=== PATIENT | male | born 1975 | race Caucasian/White ===

== ENCOUNTER 2019-10-22 18:45 | Day surgery (SDC) | payer SELFPAY ==
[2019-10-22] MEDS ORDERED: HYDROmorphone 0.5 MG/0.5 ML Syringe IVPUSH ONE (19:11)
[2019-10-22] MEDS ORDERED: Metoclopramide 10 MG/2 ML SDV IVPUSH ONE (19:11)
[2019-10-22] MEDS ORDERED: Sodium Chloride 0.9% 1,000 ML IV SCH (19:15)
[2019-10-22] MEDS ORDERED: Glucagon,Human Recombinant 1 MG Vial IVPUSH ONE (19:36)
--- NOTE | 2019-10-22 19:58 | EDM.PDOC ---
ED HPI GENERAL MEDICAL PROBLEM - General Chief Complaint: General Stated Complaint: FOOD STUCK IN ESOPHAGUS Time Seen by Provider: 10/22/19 18:58 Source of Information: Reports: Patient History Limitations: Reports: No Limitations - History of Present Illness INITIAL COMMENTS - FREE TEXT/NARRATIVE: Patient is a 44-year-old male who presents to the emergency department with comp laints of a food bolus stuck in his esophagus. He states he was eating steak last evening and since that time he has not been able to keep any liquids down since that time. He has had occasional emesis of small amounts of fluids. He has had problems with food boluses stuck in his esophagus in the past, however states that usually within an hour it resolves spontaneously. He has never had to seek medical attention for a lodged food bolus in the past. He has never had an EGD done so he is unaware of any esophageal strictures. He feels that the food bolus is low was in esophagus. He will occasionally have spasms in the area of his xiphoid process which cause a sharp pain and then resolved. Denies any chronic health problems. Epigastric Pain Score (Numeric/FACES): 7 - Related Data Allergies Allergy/AdvReac Type Severity Reaction Status Date / Time No Known Allergies Allergy Verified 10/22/19 18:57 Home Meds: Home Meds Fexofenadine [Kelli] 1 tab PO DAILY 10/22/19 [History] Past Medical History Respiratory History: Reports: Asthma - Past Surgical History HEENT Surgical History: Reports: Tonsillectomy Social & Family History - Tobacco Use Smoking Status *Q: Never Smoker Second Hand Smoke Exposure: No - Caffeine Use Caffeine Use: Reports: Coffee - Recreational Drug Use Recreational Drug Use: No ED ROS GENERAL - Review of Systems Review Of Systems: Comprehensive ROS is negative, except as noted in HPI. ED EXAM, GENERAL - Physical Exam Exam: See Below Exam Limited By: No Limitations General Appearance: Alert, WD/WN, No Apparent Distress Respiratory/Chest: No Respiratory Distress, Lungs Clear, Normal Breath Sounds, No Accessory Muscle Use, Chest Non-Tender Cardiovascular: Normal Peripheral Pulses, Regular Rate, Rhythm, No Edema, No Gallop, No JVD, No Murmur, No Rub GI/Abdominal: Normal Bowel Sounds, Soft, Non-Tender, No Organomegaly, No Distention, No Abnormal Bruit, No Mass Neurological: Alert, Oriented, CN II-XII Intact, Normal Cognition, Normal Gait, Normal Reflexes, No Motor/Sensory Deficits Psychiatric: Normal Affect, Normal Mood Course - Vital Signs Last Recorded V/S: Last Vital Signs Temp 96.9 F 10/22/19 18:52 Pulse 84 10/22/19 18:52 Resp 22 H 10/22/19 18:52 BP 156/97 H 10/22/19 18:52 Pulse Ox 98 10/22/19 18:52 - Orders/Labs/Meds Orders: Active Orders 24 hr Category Date Time Status Patient Status [ADT] Routine ADT 10/22/19 20:25 Active CORONAVIRUS COVID-19 RAPID [MOLEC] Urgent Lab 10/22/19 20:17 Ordered Sodium Chloride 0.9% [Normal Saline] 1,000 ml Med 10/22/19 19:15 Active IV ASDIRECTED Schedule Procedure [COMM] Stat Oth 10/22/19 20:27 Ordered Medication Orders Sodium Chloride (Normal Saline) 1,000 mls @ 999 mls/hr IV ASDIRECTED JUAN Last Admin: 10/22/19 19:31 Dose: 999 mls/hr Documented by: KEYONA Labs: Laboratory Tests 10/22/19 Range/Units 20:25 SARS Virus RNA (PCR) Positive H (NEGATIVE) Meds: Medications Generic Name Dose Route Start Last Admin Trade Name Freq PRN Reason Stop Dose Admin Sodium Chloride 1,000 mls @ 999 mls/hr 10/22/19 19:15 10/22/19 19:31 Normal Saline IV 999 mls/hr ASDIRECTED JUAN Administration Discontinued Medications Generic Name Dose Route Start Last Admin Trade Name Freq PRN Reason Stop Dose Admin Fentanyl Confirm 10/22/19 20:54 Sublimaze Administered 10/22/19 20:55 Dose 100 mcg .ROUTE .STK-MED ONE Glucagon 1 mg 10/22/19 19:36 10/22/19 19:57 Glucagen IVPUSH 10/22/19 19:37 1 mg ONETIME ONE Administration Hydromorphone HCl 0.5 mg 10/22/19 19:11 10/22/19 19:31 Dilaudid IVPUSH 10/22/19 19:12 0.5 mg ONETIME ONE Administration Lidocaine HCl Confirm 10/22/19 20:54 Xylocaine-Mpf 1% Administered 10/22/19 20:55 Dose 4 mls @ as directed .ROUTE .STK-MED ONE Metoclopramide HCl 7.5 mg 10/22/19 19:11 10/22/19 19:31 Reglan IVPUSH 10/22/19 19:12 7.5 mg ONETIME ONE Administration Midazolam HCl Confirm 10/22/19 20:54 Versed 1 Mg/Ml Administered 10/22/19 20:55 Dose 2 mg .ROUTE .STK-MED ONE Ondansetron HCl Confirm 10/22/19 20:54 Zofran Administered 10/22/19 20:55 Dose 4 mg .ROUTE .STK-MED ONE Propofol Confirm 10/22/19 20:54 Diprivan 20 Ml Administered 10/22/19 20:55 Dose 200 mg .ROUTE .STK-MED ONE - Re-Assessments/Exams Free Text/Narrative Re-Assessment/Exam: 10/22/19 20:36 Patient has been unsuccessful with clearing the food bolus after the medications given in addition to a carbonated beverage. He continues to regurgitate anything that he drinks. Called and spoke with the general surgeon on-call, Dr. Perez. Requested that we order a 2 view chest x-ray and COVID screening. She plans to take him to the OR for an EGD in approximately 1 hour once the results of the COVID screen are available. OR crew will be notified. Patient has been updated. Departure - Departure Time of Disposition: 20:36 Disposition: DC/Tfer to [facility] Condition: Good Clinical Impression: Esophageal obstruction due to food impaction - Discharge Information Sepsis Event Note (ED) - Evaluation Sepsis Screening Result: No Definite Risk - Focused Exam Vital Signs: Vital Signs Temp Pulse Resp BP Pulse Ox 10/22/19 18:52 96.9 F 84 22 H 156/97 H 98 - My Orders Last 24 Hours: My Active Orders 10/22/19 19:15 Sodium Chloride 0.9% [Normal Saline] 1,000 ml IV ASDIRECTED 10/22/19 20:17 CORONAVIRUS COVID-19 RAPID [MOLEC] Urgent - Assessment/Plan Last 24 Hours: My Active Orders 10/22/19 19:15 Sodium Chloride 0.9% [Normal Saline] 1,000 ml IV ASDIRECTED 10/22/19 20:17 CORONAVIRUS COVID-19 RAPID [MOLEC] Urgent
--- NOTE | 2019-10-22 20:49 | CR ---
Chest: 2 views of the chest were obtained. Comparison: No prior chest x-ray. Heart size and mediastinum are normal. Lungs are clear with no acute parenchymal change. Bony structures are unremarkable. Impression: 1. Nothing acute is seen on 2 view chest x-ray. Diagnostic code #1 This report was dictated in MDT
[2019-10-22] MEDS ORDERED: Propofol 200 MG/20 ML SDV ONE (20:54)
[2019-10-22] MEDS ORDERED: fentaNYL 100 MCG/2 ML SDV ONE ×2 (20:54→21:57)
[2019-10-22] MEDS ORDERED: Succinylcholine/Sod PF 100 MG/5 ML SYRINGE IV ONE (20:54)
[2019-10-22] MEDS ORDERED: Ondansetron 4 MG/2 ML SDV ONE (20:54)
[2019-10-22] MEDS ORDERED: Lidocaine 1% 4 ML ONE (20:54)
[2019-10-22] MEDS ORDERED: Midazolam 1 MG/ML 2 ML SDV ONE (20:54)
--- NOTE | 2019-10-22 21:15 | PCM.PREANE ---
Preanesthetic Assessment - Procedure Proposed Procedure: egd withforeign body removal - Anesthesia/Transfusion/Family Hx Anesthesia History: Prior Anesthesia Without Reaction Family History of Anesthesia Reaction: No Transfusion History: No Prior Transfusion(s) - Review of Systems General: No Symptoms Pulmonary: No Symptoms Cardiovascular: No Symptoms Gastrointestinal: Abdominal Pain, Vomiting (last 24 hours) Neurological: No Symptoms - Physical Assessment NPO Status Date: 10/21/19 NPO Status Time: 21:00 (vomit even sips of warter) Vital Signs: Last Vital Signs Temp 96.9 F 10/22/19 18:52 Pulse 84 10/22/19 18:52 Resp 22 H 10/22/19 18:52 BP 156/97 H 10/22/19 18:52 Pulse Ox 98 10/22/19 18:52 Height: 6 ft Weight: 124.738 kg ASA Class: 2E Mental Status: Alert & Oriented x3 Airway Class: Mallampati = 1 Dentition: Reports: Normal Dentition Thyro-Mental Finger Breadths: 3 Mouth Opening Finger Breadths: 3 ROM/Head Extension: Full Lungs: Clear to Auscultation, Normal Respiratory Effort Cardiovascular: Regular Rate, Regular Rhythm - Allergies Allergies/Adverse Reactions: Allergies Allergy/AdvReac Type Severity Reaction Status Date / Time No Known Allergies Allergy Verified 10/22/19 18:57 - Blood Blood Available: No - Acknowledgements Anesthesia Type Planned: General Anesthesia Pt an Appropriate Candidate for the Planned Anesthesia: Yes Alternatives and Risks of Anesthesia Discussed w Pt/Guardian: Yes Pt/Guardian Understands and Agrees with Anesthesia Plan: Yes PreAnesthesia Questionnaire Cardiovascular History: Reports: None 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) Gastrointestinal History: Reports: None Musculoskeletal History: Reports: None Oncologic (Cancer) History: Reports: None - Past Surgical History HEENT Surgical History: Reports: Tonsillectomy - SUBSTANCE USE Smoking Status *Q: Never Smoker Tobacco Use Within Last Twelve Months: No Second Hand Smoke Exposure: Yes Days Per Week of Alcohol Use: 3 Number of Drinks Per Day: 3 Total Drinks Per Week: 9 Recreational Drug Use History: No - HOME MEDS Home Medications: Home Meds Fexofenadine [Kelli] 1 tab PO DAILY 10/22/19 [History] - CURRENT (IN HOUSE) MEDS Current Meds: Current Medications Sodium Chloride (Normal Saline) 1,000 mls @ 999 mls/hr IV ASDIRECTED JUAN Last Admin: 10/22/19 19:31 Dose: 999 mls/hr Documented by: Discontinued Medications Fentanyl (Sublimaze) Confirm Administered Dose 100 mcg .ROUTE .STK-MED ONE Stop: 10/22/19 20:55 Glucagon (Glucagen) 1 mg IVPUSH ONETIME ONE Stop: 10/22/19 19:37 Last Admin: 10/22/19 19:57 Dose: 1 mg Documented by: Hydromorphone HCl (Dilaudid) 0.5 mg IVPUSH ONETIME ONE Stop: 10/22/19 19:12 Last Admin: 10/22/19 19:31 Dose: 0.5 mg Documented by: Lidocaine HCl (Xylocaine-Mpf 1%) Confirm Administered Dose 4 mls @ as directed .ROUTE .STK-MED ONE Stop: 10/22/19 20:55 Metoclopramide HCl (Reglan) 7.5 mg IVPUSH ONETIME ONE Stop: 10/22/19 19:12 Last Admin: 10/22/19 19:31 Dose: 7.5 mg Documented by: Midazolam HCl (Versed 1 Mg/Ml) Confirm Administered Dose 2 mg .ROUTE .STK-MED ONE Stop: 10/22/19 20:55 Ondansetron HCl (Zofran) Confirm Administered Dose 4 mg .ROUTE .STK-MED ONE Stop: 10/22/19 20:55 Propofol (Diprivan 20 Ml) Confirm Administered Dose 200 mg .ROUTE .STK-MED ONE Stop: 10/22/19 20:55
--- NOTE | 2019-10-22 21:47 | PCM.HP.2 ---
H&P History of Present Illness - General Date of Service: 10/22/19 Admit Problem/Dx: Admission Diagnosis/Problem Admission Diagnosis/Problem Food impaction of esophagus Source of Information: Patient, Provider History Limitations: Reports: No Limitations - History of Present Illness Initial Comments - Free Text/Narative: the patient is a 44 y/o male who presents for evaluation of dysphagia and inability to tolerate oral intake after eating steak yesterday. He reports multiple episodes of vomiting since the incident. He states this has happened 8 different times in the past, the previous episode 4-5 months ago was the worst until now. He has never needed intervention to remove any foreign body. In the ED, the patient had medical treatment with narcotic and glucagon, and was still not able to keep down water. He had a negative CXR. Epigastric Pain Score (Numeric/FACES): 7 - Related Data Allergies/Adverse Reactions: Allergies Allergy/AdvReac Type Severity Reaction Status Date / Time No Known Allergies Allergy Verified 10/22/19 18:57 Home Medications: Home Meds Fexofenadine [Kelli] 1 tab PO DAILY 10/22/19 [History] Past Medical History Cardiovascular History: Reports: None Respiratory History: Reports: Asthma Gastrointestinal History: Reports: None Musculoskeletal History: Reports: None Oncologic (Cancer) History: Reports: None - Past Surgical History HEENT Surgical History: Reports: Tonsillectomy Social & Family History - Family History Family Medical History: Noncontributory - Tobacco Use Smoking Status *Q: Never Smoker Second Hand Smoke Exposure: No - Caffeine Use Caffeine Use: Reports: Coffee - Alcohol Use Days Per Week of Alcohol Use: 3 Number of Drinks Per Day: 3 Total Drinks Per Week: 9 - Recreational Drug Use Recreational Drug Use: No H&P Review of Systems - Review of Systems: Review Of Systems: See Below General: Reports: No Symptoms. Denies: Fever HEENT: Reports: No Symptoms Pulmonary: Reports: No Symptoms. Denies: Shortness of Breath, Wheezing, Cough Cardiovascular: Reports: No Symptoms. Denies: Chest Pain Gastrointestinal: Reports: No Symptoms. Denies: Constipation, Diarrhea, Hematochezia, Melena Genitourinary: Reports: No Symptoms Musculoskeletal: Reports: No Symptoms Skin: Reports: No Symptoms Neurological: Reports: No Symptoms Exam - Exam Exam: See Below - Vital Signs Vital Signs: Last Vital Signs Temp 36.1 C 10/22/19 18:52 Pulse 84 10/22/19 18:52 Resp 22 H 10/22/19 18:52 BP 156/97 H 10/22/19 18:52 Pulse Ox 98 10/22/19 18:52 Weight: 124.738 kg - Exam Quality Assessment: No: Supplemental Oxygen General: Alert, Oriented HEENT: Conjunctiva Clear, EOMI, Other (pt wearing mask throughout the procedure) Neck: Supple Lungs: Clear to Auscultation, Normal Respiratory Effort Cardiovascular: Regular Rate, Regular Rhythm GI/Abdominal Exam: Soft, Non-Tender, No Distention Psychiatric: Alert, Normal Affect - Patient Data Lab Results Last 24 hrs: Laboratory Results - last 24 hr 10/22/19 Range/Units 20:25 SARS Virus RNA (PCR) Positive H (NEGATIVE) Sepsis Event Note - Evaluation Sepsis Screening Result: No Definite Risk - Focused Exam Vital Signs: Vital Signs Temp Pulse Resp BP Pulse Ox 10/22/19 18:52 36.1 C 84 22 H 156/97 H 98 *Q Meaningful Use (ADM) - VTE Risk Assess *Q Each Risk Factor Represents 1 Point: Age 41 - 59 years Total Score 1 Point Risk Factors: 1 - Problem List (1) Esophageal obstruction due to food impaction SNOMED Code(s): 237688167 ICD Code: K22.2 - ESOPHAGEAL OBSTRUCTION; T18.128A - FOOD IN ESOPHAGUS CAUSING OTHER INJURY, INITIAL ENCOUNTER Status: Acute Current Visit: Yes Problem List Initiated/Reviewed/Updated: Yes Orders Last 24hrs: Active Orders 24 hr Category Date Time Status Patient Status [ADT] Routine ADT 10/22/19 20:25 Active CORONAVIRUS COVID-19 RAPID [MOLEC] Urgent Lab 10/22/19 20:17 Ordered Sodium Chloride 0.9% [Normal Saline] 1,000 ml Med 10/22/19 19:15 Active IV ASDIRECTED Schedule Procedure [COMM] Stat Oth 10/22/19 20:27 Ordered Medication Orders Sodium Chloride (Normal Saline) 1,000 mls @ 999 mls/hr IV ASDIRECTED JUAN Last Admin: 10/22/19 19:31 Dose: 999 mls/hr Documented by: KEYONA Assessment/Plan Comment:: 44 y/o gentleman with esophageal food bolus impaction - plan for EGD with retrieval of foreign body - follow up as outpatient with esophogram - will assess need for acid suppression based on procedural findings Pt with positive preoperative COVID screen but asymptomatic. Will instruct to self-quarantine for 10 days per CDC guidelines. Will have follow up from [place] [facility]. Latasha Asencio MD General surgery - Mortality Measure Prognosis:: Good
--- NOTE | 2019-10-22 22:26 | PCM.OPNOTE ---
- General Post-Op/Procedure Note Date of Surgery/Procedure: 10/22/19 Operative Procedure(s): EGD with removal of foreign body Findings: 1. large food bolus in upper and mid esophagus 2. Esophagitis 3. Gastritis 4. Duodenitis Pre Op Diagnosis: esophageal food obstruction Post-Op Diagnosis: same Anesthesia Technique: General ET Tube Primary Surgeon: Latasha Asencio Anesthesia Provider: Lesia Wood Pathology: gastric antrum Output, Urine Amount: 0 EBL in mLs: 0 Complications: none apparent Condition: Good
--- NOTE | 2019-10-22 22:31 | PCM.PRNOTE ---
- Free Text/Narrative Note: Operative Report Date of procedure: October 22, 2019 Preoperative diagnosis: Esophageal food obstruction Postoperative diagnosis: Same Surgeon: Latasha Asencio M.D. Procedure: EGD with removal of foreign body Anesthesia: General [employer]: Lesia Wood CRNA IV fluids: See anesthesia record Estimated blood loss: 0 mL Findings: 1 large food bolus in upper and midesophagus 2. Esophagitis 3. Gastritis 4. Duodenitis Specimens: Gastric antrum biopsy. Indication: The patient is a 44 -year-old gentleman who presented with an esophageal food obstruction. The patient's main complaint was dysphagia and inability to tolerate oral intake. The patient was consented for an EGD with intervention. Risk of perforation was discussed. The patient's consent was obtained. Description of the procedure: The patient was taken to the endoscopy suite and placed on hemodynamic monitoring. The nurse handkerchief cutter induced general anesthesia. He was intubated without difficulty. A bite block was placed. The patient was positioned in the supine position. A timeout was performed. The endoscope was gently placed into the mouth to the back of the pharynx and introduced into the esophagus. The scope was gently advanced under direct visualization down to the level of the food bolus which was noted in the upper to mid esophagus. This was then inserted using a loop snare and withdrawn to the mouth. It was quite large and there was a small amount of resistance. The scope was very inserted and again the food bolus was encountered at the same level. 2 additional passes were made retrieving additional pieces of food with each pass. There was no evidence of significant bleeding or injury from removal of these food pieces. The esophagus was then substantially cleared and the scope was advanced through the lower esophageal sphincter. The stomach was then entered. Normal rugal folds were noted. The scope was advanced into the antrum. We noted gastritis with erythema more pronounced in the antral mucosa. The pylorus was then entered and the first and second portion of the duodenum was inspected. We did note some erythema and inflammation in the bulb and first portion of the duodenum. There were no ulcerations in the duodenum. The scope was then retroflexed in the cardia and fundus were investigated. There is no evidence of any hiatal hernia. Biopsies were taken in the gastric antrum using a cold biopsy forceps because of the patient's gastritis no other abnormalities were noted. The scope was then withdrawn while inspecting the esophagus. There was esophagitis in the distal esophagus near the lower esophageal sphincter. The procedure was terminated. the patient tolerated the procedure well without any evidence of complications. Latasha Asencio MD General Surgery
--- NOTE | 2019-10-22 22:55 | PCM.POSTAN ---
POST ANESTHESIA ASSESSMENT - MENTAL STATUS Mental Status: Alert, Oriented - VITAL SIGNS Vital Signs: Last Vital Signs Temp 96.9 F 10/22/19 18:52 Pulse 84 10/22/19 18:52 Resp 22 H 10/22/19 18:52 BP 156/97 H 10/22/19 18:52 Pulse Ox 98 10/22/19 18:52 2228 80 20 98.9 95% 136/77 - RESPIRATORY Respiratory Status: Respiratory Rate WNL, Airway Patent, O2 Saturation Stable, Supplemental Oxygen - CARDIOVASCULAR CV Status: Pulse Rate WNL, Blood Pressure Stable - GASTROINTESTINAL GI Status: No Symptoms - PAIN Pain Score: 0 - POST OP HYDRATION Hydration Status: Adequate & Stable
[2019-10-22] MEDS ORDERED: HYDROmorphone 0.5 MG/0.5 ML Syringe IVPUSH PRN (22:56)
[2019-10-22] MEDS ORDERED: fentaNYL 100 MCG/2 ML SDV IVPUSH PRN (22:56)
[2019-10-22] MEDS ORDERED: Ondansetron 4 MG/2 ML SDV IVPUSH PRN (22:56)
--- NOTE | 2019-10-22 23:00 | PCM48HPAN ---
Post Anesthesia Note - EVALUATION WITHIN 48HRS OF ANESTHETIC Vital Signs in Normal Range: Yes Patient Participated in Evaluation: Yes Respiratory Function Stable: Yes Airway Patent: Yes Cardiovascular Function Stable: Yes Hydration Status Stable: Yes Pain Control Satisfactory: Yes Nausea and Vomiting Control Satisfactory: Yes Mental Status Recovered: Yes Vital Signs: Last Vital Signs Temp 96.9 F 10/22/19 18:52 Pulse 84 10/22/19 18:52 Resp 22 H 10/22/19 18:52 BP 156/97 H 10/22/19 18:52 Pulse Ox 98 10/22/19 18:52
== END 2019-10-22 23:20 | disposition home or self-care (01) ==
LOC: JD.ED 18:45 → JD.SDS 20:24
PROVIDERS: ATTEND Surgery
DX: K22.2 Esophageal obstruction (principal); T18.128A Food in esophagus causing other injury, initial encounter; K29.50 Unspecified chronic gastritis without bleeding; K20.9 Esophagitis, unspecified; K29.80 Duodenitis without bleeding; J45.909 Unspecified asthma, uncomplicated; Z01.812 Encounter for preprocedural laboratory examination; Z20.828 Contact with and (suspected) exposure to other viral communicable diseases
CPT/HCPCS: 43247; 71046; 87635; 96361; 96374; 96375; 99285; J0330; J1170; J1610; J2001; J2250; J2405; J2704; J2765; J3010; J7030; 00731; 99284; U0002